=== PATIENT | female | born 1945 | race Hispanic/Latino ===

== ENCOUNTER 2017-03-20 09:24 | Emergency (ER) | payer OTHER, MEDICARE ==
[~2017-03-20 09:24] MED LIST: ANTIVERT 25MG #1 PAC PO; BUFFERIN LOW DO81 MG PO; CYANOCOBAL1000 MCG/2 IM; FLUOXETINE HCL40 M1 PO; LEVOTHYROXINE75 MCG PO; MACRODANTIN 50M50 MG PO; TRAMADOL50 MG PO; XANAX0.5 M1 PO; ZOCOR40 M1 PO
--- NOTE | 2017-03-20 09:33 | ED GENERAL ADULT ---
History of Present Illness General Chief Complaint: General Adult Stated Complaint: BIBA GENERAL SICKNESS Source: patient, old records, EMS Exam Limitations: language barrier Vital Signs & Intake/Output Vital Signs & Intake/Output Vital Signs Date Time Temp Pulse Resp B/P B/P Pulse O2 O2 Flow FiO2 Mean Ox Delivery Rate 03/20 1050 98.9 80 20 124/62 96 Nasal 2.0L Cannula 03/20 0947 95 Nasal 2.0L Cannula 03/20 0947 99.4 80 20 124/60 95 Nasal 2.0L Cannula 03/20 0944 99.4 77 20 122/60 95 Nasal 2.0L Cannula Allergies Coded Allergies: Penicillins (UNKNOWN 03/20/17) Reconcile Medications Alprazolam (Xanax) 0.5 MG TABLET 1 TAB PO TID ANXIETY (Reported) Aspirin (Aspirin*) 81 MG TAB.CHEW 1 TAB PO DAILY HEART HEALTH (Reported) Baclofen 10 MG TABLET 0.5 TAB PO BID MUSCLE SPASMS (Reported) Baclofen 10 MG TABLET 1 TAB PO QPM MUSCLE SPASMS (Reported) Cyanocobalamin (Vitamin B-12) (Cyanocobalamin Injection) 1,000 MCG/ML VIAL 1 ML IM QW VITAMIN SUPPORT (Reported) Docusate Sodium (Colace) 100 MG CAPSULE 1 CAP PO BID CONSTIPATION (Reported) Ferrous Sulfate 325 MG (65 MG IRON) TABLET.DR 1 TAB PO DAILY SUPPLEMENT ( Reported) Fluoxetine HCl 40 MG CAPSULE 1 CAP PO QAM MENTAL HEALTH (Reported) Haloperidol 0.5 MG TABLET 1 TAB PO 1400 MENTAL HEALTH (Reported) Haloperidol 0.5 MG TABLET 1 TAB PO QPM MENTAL HEALTH (Reported) Lactose-Reduced Food (Ensure Liquid) 237 ML LIQUID 120 ML PO BID UNKNOWN ( Reported) Levothyroxine Sodium 75 MCG TABLET 1 TAB PO DAILY AC THYROID (Reported) Polyethylene Glycol 3350 (Miralax) 17 GRAM POWD.PACK 1 PAC PO DAILY GI ( Reported) dissolve in water Sertraline HCl (Zoloft) 25 MG TABLET 1 TAB PO DAILY MENTAL HEALTH (Reported) Simvastatin (Zocor*) 40 MG TABLET 1 TAB PO QPM CHOLESTEROL (Reported) Triage Nurses Notes Reviewed? yes HPI: Patient is a 72 year old female brought in by ambulance for reports of chest pain this morning. Per EMS patient denied chest pain on their arrival and was refusing transport. Patient's , the patient's power of clinical lab assistant, requested that patient be transported to the hospital for evaluation. Patient reports pain is 0/10. No complaints currently. (HEATHER FRANKLIN) Past History Travel History Traveled to [place] past 21 day No Medical History Any Pertinent Medical History? see below for history Neurological: CVA, L SIDED WEAKNESS EENT: NONE Cardiovascular: NONE Respiratory: asthma Gastrointestinal: constipation Hepatic: NONE Renal: NONE Musculoskeletal: osteoarthritis Psychiatric: depression Endocrine: NONE Blood Disorders: NONE Cancer(s): NONE PATCHER/Reproductive: NONE History of MRSA: No History of VRE: No History of CDIFF: No Surgical History Surgical History: non-contributory Psychosocial History Who do you live with [facility] ([facility] facility) Services at Home Home Health Aide, Nursing What is your primary language [place] Family History Hx Contributory? No (HEATHER FRANKLIN) Review of Systems Review of Systems Constitutional: Reports: no symptoms. EENTM: Reports: no symptoms. Respiratory: Reports: no symptoms. Cardiovascular: Reports: see HPI. GI: Reports: no symptoms. Denies: abdominal pain. Musculoskeletal: Reports: no symptoms. Denies: back pain. Skin: Reports: no symptoms. Neurological/Psychological: Denies: headache. Hematologic/Endocrine: Reports: no symptoms. Immunologic/Allergic: Reports: no symptoms. (HEATHER FRANKLIN) Physical Exam Physical Exam General Appearance: alert, awake Head: atraumatic, normal appearance Eyes: Bilateral: normal appearance, PERRL, EOMI. Ears, Nose, Throat: hearing grossly normal Neck: normal inspection, supple, full range of motion Respiratory: normal breath sounds, chest non-tender, no respiratory distress, lungs clear Cardiovascular: regular rate/rhythm (no appreciable murmur) Gastrointestinal: normal bowel sounds, soft, non-tender Extremities: contracted bilateral upper and lower extremities Neurologic/Psych: awake, alert Skin: warm/dry Lymphatic: no anterior cervical simona Core Measures ACS in differential dx? Yes ASA ordered for poss ACS? No-ACS ruled out CVA/TIA Diagnosis: No Severe Sepsis Present: No Septic Shock Present: No (HEATHER FRANKLIN) Progress Differential Diagnoses I considered the following diagnoses in my evaluation of the patient: Plan of Care: Orders Procedure Date/time Status EKG 03/20 932 Active Telemetry/Natural Remedy Consultant 03/20 931 Active TROPONIN LEVEL 03/20 931 Complete COMPREHENSIVE METABOLIC PANEL 03/20 931 Complete CBC WITHOUT DIFFERENTIAL 03/20 931 Complete Laboratory Tests 03/20/17 0940: Anion Gap 10, Estimated GFR > 60, BUN/Creatinine Ratio 18.3, Glucose 94, Calcium 9.0, Total Bilirubin 0.7, AST 43 H, ALT 41, Alkaline Phosphatase 76, Troponin I 0.04, Total Protein 6.1 L, Albumin 2.7 L, Globulin 3.4, Albumin/Globulin Ratio 0.8 L, CBC w Diff NO MAN DIFF REQ, RBC 3.61 L, MCV 90.0, MCH 29.6, RDW 17.2 H , MPV 8.9, Gran % 64.3, Lymphocytes % 18.5 L, Monocytes % 6.1, Eosinophils % 10.7 H, Basophils % 0.4, Absolute Granulocytes 5.8, Absolute Lymphocytes 1.7, Absolute Monocytes 0.6, Absolute Eosinophils 1.0, Absolute Basophils 0, PUBS MCHC 32.9 L 0935: Patient's advanced directives reviewed. Patient is Do Not Resuscitate and do not hospitalize. 1020: Discussed with Dr. Mensah. 1030: Message was left on 's voicemail to discuss patient's care. (GENNARO PADRON,HEATHER) Diagnostic Imaging: Viewed by Me: Radiology Read. Discussed w/RAD: Radiology Read. CXR Impression: PATIENT: NESTOR FLORES PRESENT AGE: 72 PATIENT ACCOUNT NO: [id number] : 44 LOCATION: [facility] [place] ORDERING PHYSICIAN: HEATHER PADRON SERVICE DATE: 03/20/17 EXAM TYPE: RAD - XRY- PORTABLE CHEST XRAY EXAMINATION: XR PORTABLE CHEST CLINICAL INFORMATION: Chest pain. COMPARISON: Chest radiographs dated 11/06/2015 and 06/17/2015; CT abdomen and pelvis dated 11/08/2015. TECHNIQUE: Portable frontal view of the chest was obtained. FINDINGS: The heart size is least top normal. There is atherosclerotic change of the aortic knob. There is pulmonary vascular congestion, without overt pulmonary edema. There is chronic mild elevation of the right hemidiaphragm. A left pericardial fat pad is again seen, consistent with prior CT findings. No focal infiltrate, effusion or pneumothorax is seen. There is no acute osseous abnormality. IMPRESSION: 1. There is cardiomegaly and mild pulmonary vascular congestion. There is no overt pulmonary edema. 2. No focal infiltrate is seen. 3. There is chronic mild elevation of the left hemidiaphragm. DICTATED BY: SHERRIE ASH MD DATE/TIME DICTATED:03/20/171007 GAS ADJUSTER:LALI DATE/ TIME TRANSCRIBED:03/20/171007 CONFIDENTIAL, DO NOT COPY WITHOUT APPROPRIATE AUTHORIZATION. <Electronically signed in Other Vendor System> SIGNED BY: SHERRIE ASH MD 03/20/17 1028 Pre-Hospital EKG: normal axis, normal intervals, normal p-waves, normal QRS complex, normal sinus rhythm, no ST T wave changes Initial ED EKG: normal axis, normal intervals, normal p-waves, normal QRS complex, normal sinus rhythm, no ST T wave changes Rhythm Strip: normal sinus rhythm (HEATHER FRANKLIN) Departure Departure Time of Disposition: 1040 Disposition: ACUTE REHAB FACILITY Condition: Stable Clinical Impression Primary Impression: Pulmonary vascular congestion Secondary Impressions: Hypokalemia Referrals: MICHELLE NICHOLSON,[facility] Departure Forms: Customer Survey General Discharge Information (HEATHER FRANKLIN) PA/LANGUAGES AND LITERATURE INSTRUCTOR Co-Sign Statement Statement: ED Attending supervision documentation- [] I saw and evaluated the patient. I have also reviewed all the pertinent lab results and diagnostic results. I agree with the findings and the plan of care as documented in the PA's/LANGUAGES AND LITERATURE INSTRUCTOR's documentation. [X] I have reviewed the ED Record and agree with the PA's/LANGUAGES AND LITERATURE INSTRUCTOR's documentation. [] Additions or exceptions (if any) to the PAs/LANGUAGES AND LITERATURE INSTRUCTOR's note and plan are summarized below: [] (TONY NICHOLSON,DANNIE Boateng) Critical Care Note Critical Care Note Critical Care Time: non-applicable (HEATHER FRANKLIN)
[2017-03-20] MEDS ORDERED: ENSURE LIQUID237 ML PO (09:35)
[2017-03-20] MEDS ORDERED: BACLOFEN10 M1 PO ×2 (09:36→09:37)
[2017-03-20] MEDS ORDERED: HALOPERIDOL0.5 M1 PO ×2 (09:37→09:38)
[2017-03-20] MEDS ORDERED: MIRALAX17 G1 PO (09:39)
[2017-03-20] MEDS ORDERED: FERROUS SULFAT325 M2 PO (09:40)
[2017-03-20] MEDS ORDERED: ZOLOFT25 M1 PO (09:41)
[2017-03-20] MEDS ORDERED: ASPIRIN81 M4 PO (09:42)
[2017-03-20] MEDS ORDERED: COLACE100 M1 PO (09:43)
[2017-03-20 09:58] LABS: ABSOLUTE BASOPHIL COUNT 0 /CUMM (0.0-0.2); ABSOLUTE GRANULOCYTE CT 5.8 /CUMM (1.4-6.5); ABSOLUTE LYMPH COUNT 1.7 /CUMM (1.2-3.4); ABSOLUTE MONOCYTE COUNT 0.6 /CUMM (0.10-0.60); BASOPHIL % 0.4 % (0.0-2.0); EOSINOPHIL % 10.7 % (0-5); GRANULOCYTE % 64.3 % (42.2-75.2); HEMATOCRIT 32.5 % (37-47); MEAN CORPUSCULAR HGB 29.6 PG (27.0-31.0); MEAN CORPUSCULAR HGB CONC 32.9 G/DL (33.0-37.0); MEAN PLATELET VOLUME 8.9 FL (7.4-10.4); PLATELET COUNT 163 /CUMM (130-400); RBC DISTRIBUTION WIDTH 17.2 % (11.5-14.5); RED BLOOD CELL CT 3.61 /CUMM (4.20-5.40); WHITE BLOOD CELL COUNT 9.1 /CUMM (4.8-10.8)
--- NOTE | 2017-03-20 10:28 | RADIOLOGY REPORT ---
EXAMINATION: XR PORTABLE CHEST CLINICAL INFORMATION: Chest pain. COMPARISON: Chest radiographs dated 11/06/2015 and 06/17/2015; CT abdomen and pelvis dated 11/08/2015. TECHNIQUE: Portable frontal view of the chest was obtained. FINDINGS: The heart size is least top normal. There is atherosclerotic change of the aortic knob. There is pulmonary vascular congestion, without overt pulmonary edema. There is chronic mild elevation of the right hemidiaphragm. A left pericardial fat pad is again seen, consistent with prior CT findings. No focal infiltrate, effusion or pneumothorax is seen. There is no acute osseous abnormality. IMPRESSION: 1. There is cardiomegaly and mild pulmonary vascular congestion. There is no overt pulmonary edema. 2. No focal infiltrate is seen. 3. There is chronic mild elevation of the left hemidiaphragm.
[2017-03-20 10:50] VITALS: BP 124/62
== END 2017-03-20 10:57 ==
LOC: ERH 09:24
PROVIDERS: Physician Assistant
DX: R09.89 Other specified symptoms and signs involving the circulatory and respiratory systems (principal); E87.6 Hypokalemia; R07.9 Chest pain, unspecified
CPT/HCPCS: 93005; 93010